=== PATIENT | male | born 1995 | race Caucasian/White ===

== ENCOUNTER 2024-05-02 04:12 | Emergency (ER) | payer OTHER ==
[2024-05-02] MEDS: Acetaminophen 500 MG Tab PO ONE (05:03)
== END 2024-05-02 05:21 ==
LOC: FB.ED 04:12
DX: S60.222A Contusion of left hand, initial encounter (principal); F10.920 Alcohol use, unspecified with intoxication, uncomplicated; W22.8XXA Striking against or struck by other objects, initial encounter
CPT/HCPCS: 73130; 99283; A9270